=== PATIENT | female | born 1980 | race Caucasian/White ===

== ENCOUNTER 2019-12-08 11:00 | Observation (INO) ==
[2019-12-08] MEDS ORDERED: MORPHINE SULFATE INJ 2 MG INJ IVP PRN (11:38)
[2019-12-08] MEDS ORDERED: NS 1000 ML 1,000 ML ONE (12:07)
[2019-12-08 12:14] LABS: ALANINE AMINOTRANSFERASE 113 Units/L (12-78); ALBUMIN 4.5 g/dL (3.4-5.0); ALKALINE PHOSPHATASE 120 Units/L (46-116); ASPARTATE AMINO TRANSFERASE 60 Units/L (15-37); BLOOD UREA NITROGEN 12 mg/dL (7-18); CALCIUM 9.3 mg/dL (8.5-10.1); CARBON DIOXIDE 24.2 mmol/L (21-32); CHLORIDE 102 mmol/L (98-107); COR NA(FOR HYPERGLY) 136 mmol/L (136-145); CREATININE 0.82 mg/dL (0.55-1.02); MAGNESIUM 1.8 mg/dL (1.7-2.9); SODIUM 136 mmol/L (136-145); TOTAL PROTEIN 8.9 g/dL (6.4-8.2); eGFR NON BLACK RACES > 60 (>60)
[2019-12-08] MEDS: NS 1000 ML 1,000 ML IV SCH (12:14)
--- NOTE | 2019-12-08 12:15 | DR.H&P ---
H&P - History & Physical for Day of: H&P Date: 12/08/19 - Chief Complaint Chief Complaint: ABDOMINAL PAIN, DIARRHEA, DEHYDRATION, WEAKNESS - History of Present Illness History of Present Illness: PT IS 39 WF, PT OF [facility] [place] WHO HAD BEEN TREATED FOR DIARRHEA FOR SEVERAL WEEKS. PT HAD OUTPT STOOL STUDIES + WBC. PT HAS PMH OF MS FOLLOWED BY DR REED. PT HAS HAD OUTPT HYDRATION IV AND PO. PT ADMITTED FOR TREATMENT OF ACUTE DEHYDRATION, COLITIS. - Past Medical History Additional Medical History: MS - Social History Does patient currently use any type of tobacco product: No Have you used tobacco products in the last 12 months: No Type of Tobacco Use: None Alcohol Use: None Drug Use: None - Medications Home Medications: No Known Drug Allergies Allergy (Verified 12/08/19 12:04) - Review of Systems Constitutional: Weakness Eyes: No Symptoms Reported ENT: No Symptoms Reported Respiratory: No Symptoms Reported Cardiovascular: No Symptoms Reported Gastrointestinal: See HPI, Abdominal Pain, Diarrhea Musculoskeletal: No Symptoms Reported Skin: No Symptoms Reported Neurological: Weakness Oriented: Normal Eyes: Normal Ear: Normal Nose: Normal Throat: Normal Respiratory: Clear Throughout Cardiovascular: Normal : Normal Auscultation: Bowel Sounds: Increased Tenderness: Diffuse Skin: Decreased Turgur Musculoskeletal: Back:Thoracic, Back:Lumbar Psychiatric: Normal Speech Pattern: Clear, Appropriate - Assessment/Plan (1) Abdominal pain Status: Acute Plan: ADMIT NPO ON ADMISSION UNTIL CT SCAN ABD PELVIS THEN CLEAR LIQUIDS. ADMISSION LABS CBC CMP MAG, UA. STOOL STUDIES, CRP, SED RATE. IV HYDRATION, PAIN AND NAUSEA CONTROL. VERIFY HOME MEDICATION, IV CIPRO IF NO HOME MEDICATION CONTRAINDICATION (2) Colitis Status: Acute (3) Multiple sclerosis Status: Acute (4) Dehydration Status: Acute (5) Hypokalemia Status: Acute - Allergies Allergies/Adverse Reactions: Allergies Allergy/AdvReac Type Severity Reaction Status Date / Time No Known Drug Allergies Allergy Verified 12/08/19 12:04
[2019-12-08 12:31] LABS: EOSINOPHILS # (AUTO) 0.1 x10^3/uL (0.0-0.2); EOSINOPHILS % (AUTO) 1.5 % (0.9-2.9); LYMPHOCYTES # (AUTO) 0.7 X10^3/uL (1.3-2.9); MONOCYTES # (AUTO) 0.7 x10^3/uL (0.3-0.8)
[2019-12-08 12:39] LABS: ERYTHROCYTE SEDIMENTATION RATE 11 MM/HOUR (0-20)
[2019-12-08 12:45] LABS: BASOPHILS % (AUTO) 0.3 % (0.2-1.0); HEMATOCRIT 43.5 % (36.0-47.0); HEMOGLOBIN 15.5 g/dL (12.0-16.0); LYMPHOCYTES % (AUTO) 11.7 % (21.0-51.0); MEAN CORPUSCULAR HEMOGLOBIN 32.1 pg (27.0-34.0); MEAN CORPUSCULAR HGB CONC 35.7 g/dL (33.0-35.0); MEAN CORPUSCULAR VOLUME 89.9 fL (80.0-100.0); MEAN PLATELET VOLUME 10.3 fL (7.4-11.0); MONOCYTES % (AUTO) 12.2 % (0.0-13.0); NEUTROPHILS # (AUTO) 4.5 x10^3/uL (2.2-4.8); NEUTROPHILS % (AUTO) 74.3 % (42.0-75.0); PLATELET COUNT 278 X10^3/uL (150.0-450.0); RED BLOOD COUNT 4.84 X10^6/uL (3.5-5.4)
[2019-12-08 12:58] LABS: BAND NEUTROPHILS % 9 % (0-10)
[2019-12-08 12:59] LABS: PLATELET MORPHOLOGY COMMENT NORMAL (NORMAL)
[2019-12-08] MEDS: PROTONIX INJ 40 MG VIAL IVP SCH (13:31)
[2019-12-08 14:10] LABS: BILIRUBIN,URINE NEGATIVE (NEGATIVE); BLOOD/HEMOGLOBIN,URINE 1+ (NEGATIVE); GLUCOSE, URINE NEGATIVE (NEGATIVE); KETONES,URINE NEGATIVE (NEGATIVE); LEUKOCYTE ESTERASE ,URINE NEGATIVE (NEGATIVE); NITRITES,URINE NEGATIVE (NEGATIVE); PROTEIN,URINE 2+ (NEGATIVE); UROBILINOGEN,URINE NORMAL (NORMAL)
[2019-12-08 14:20] VITALS: BMI 20.9
[2019-12-08 14:32] LABS: APPEARANCE,URINE SLIGHTLY HAZY (CLEAR); BACTERIA,URINE TRACE /HPF (NEGATIVE); COLOR,URINE YELLOW (YELLOW); RBC,URINE 0-2 /HPF (0-3); SQUAMOUS EPITHELIAL CELL,UR MODERATE /HPF (NEGATIVE)
[2019-12-08 14:33] LABS: MUCUS,URINE FEW /HPF (NEGATIVE)
[2019-12-08 14:51] LABS: CRYPTOSPORIDIUM PARVUM ANTIGEN NEGATIVE (NEGATIVE); GIARDIA LAMBLIA ANTIGEN NEGATIVE (NEGATIVE)
--- NOTE | 2019-12-08 15:53 | CT ---
HISTORYCOLITIS, INTRACTABLE ABD PAIN, DIARRHEASTUDYCT ABDOMEN/PELVIS WITH IV CONCOMPARISONNoneTECHNIQUEMultiple axial images of the abdomen and pelvis were obtained from the lung bases to the pubic symphysis following the administration of IV contrast. 100 cc Omni 350 IV. Dose reduction techniques including Automated Exposure Control (AEC) and adjustment of mA and kV were utilized.FINDINGSThe visualized portions of the lung bases reveal a 3 millimeter ground-glass nodule in the right lower lobe on image 10 of series 4.The liver and spleen display no abnormalities.Gallbladder appears normal. No biliary ductal dilation.No pancreatic abnormality is seen.The adrenal glands appear normal.No hydronephrosis or renal abnormality is seen. Ureters and bladder appear normal.Stomach is not well distended. Possible mild small bowel wall thickening and consideration should be given to gastroenteritis. Appendix is not seen but no pericecal inflammation is seen. No evidence of colitis or diverticulitis.There is likely partially collapsed 2.7 cm left ovarian cyst.Abdominal aorta is normal in size.Shotty reactive mesenteric lymph nodes.No free intraperitoneal air or fluid is seen.No acute bony abnormality is seen.IMPRESSIONNo evidence of colitis but there may be gastroenteritis changes.Likely partially collapsed 2.7 cm left ovarian cyst.Electronically signed by: Omi Langford (Dec 08, 2019 15:51:30)
[2019-12-08] MEDS ORDERED: NORCO 5/325 MG TAB PO PRN (16:22)
[2019-12-08] MEDS ORDERED: KLOR-CON PO PRN (16:24)
[2019-12-08] MEDS ORDERED: MICRO K EXTEN CAP 10 MEQ PO PRN (16:24)
[2019-12-08] MEDS ORDERED: POTASSIUM CHLORIDE LIQ 20 MEQ UDC PO PRN (16:24)
[2019-12-08] MEDS ORDERED: K-RIDER 10 MEQ/NS 100 ML 10 MEQ/100 ML BAG IV PRN (16:24)
[2019-12-08] MEDS ORDERED: POTASSIUM CHL 40 MEQ/NS 0.45% 500 ML IV PRN (16:24)
[2019-12-08] MEDS ORDERED: POTASSIUM CHL 60 MEQ/NS 0.45% 500 ML IV PRN (16:24)
[2019-12-08] MEDS: K-DUR TAB 20 MEQ PO PRN (18:01)
[2019-12-08] MEDS: IMODIUM CAP 2 MG PO PRN (18:01)
[2019-12-08] MEDS: MAGNESIUM SULFATE 1 GRAM/100 mL PREMIX 1 GM/100 ML BAG IV PRN ×2 (21:39→22:40)
[2019-12-09] MEDS: K-DUR TAB 20 MEQ PO PRN (01:33)
[2019-12-09] MEDS: NS 1000 ML 1,000 ML IV SCH (01:34)
[2019-12-09] MEDS: MAGNESIUM SULFATE 1 GRAM/100 mL PREMIX 1 GM/100 ML BAG IV PRN (01:34)
[2019-12-09 06:39] LABS: ALANINE AMINOTRANSFERASE 79 Units/L (12-78); ALBUMIN 3.5 g/dL (3.4-5.0); ALKALINE PHOSPHATASE 93 Units/L (46-116); ASPARTATE AMINO TRANSFERASE 38 Units/L (15-37); BLOOD UREA NITROGEN 5 mg/dL (7-18); CALCIUM 7.4 mg/dL (8.5-10.1); CARBON DIOXIDE 20.4 mmol/L (21-32); CHLORIDE 106 mmol/L (98-107); CREATININE 0.56 mg/dL (0.55-1.02); SODIUM 137 mmol/L (136-145); eGFR NON BLACK RACES > 60 (>60)
[2019-12-09 06:43] LABS: BASOPHILS % (AUTO) 0.2 % (0.2-1.0); EOSINOPHILS # (AUTO) 0.2 x10^3/uL (0.0-0.2); HEMATOCRIT 38.2 % (36.0-47.0); LYMPHOCYTES # (AUTO) 0.3 X10^3/uL (1.3-2.9); LYMPHOCYTES % (AUTO) 5.5 % (21.0-51.0); MEAN CORPUSCULAR HGB CONC 36.6 g/dL (33.0-35.0); MEAN CORPUSCULAR VOLUME 87.4 fL (80.0-100.0); MEAN PLATELET VOLUME 9.8 fL (7.4-11.0); MONOCYTES # (AUTO) 0.6 x10^3/uL (0.3-0.8); MONOCYTES % (AUTO) 10.8 % (0.0-13.0); NEUTROPHILS # (AUTO) 4.3 x10^3/uL (2.2-4.8); NEUTROPHILS % (AUTO) 80.5 % (42.0-75.0); PLATELET COUNT 223 X10^3/uL (150.0-450.0); RED BLOOD COUNT 4.38 X10^6/uL (3.5-5.4); RED CELL DISTRIBUTION WIDTH 13.1 % (11.6-16.5); WHITE BLOOD COUNT 5.3 X10^3/uL (3.6-10.0)
[2019-12-09] MEDS: PROTONIX INJ 40 MG VIAL IVP SCH (09:05)
[2019-12-09] MEDS: IMODIUM CAP 2 MG PO PRN (09:05)
[2019-12-09] MEDS ORDERED: QUESTRAN POWDER FOR ORAL SUSP PO SCH (11:15)
[2019-12-09] MEDS ORDERED: FLAGYL IV PREMIX 500 MG BAG 500 MG/100 ML BAG IV SCH (12:00)
--- NOTE | 2019-12-09 13:51 | RAD ---
HISTORYLung noduleSTUDYChest PA and lateral viewsCOMPARISONCT abdomen 12/08/2019, chest images unavailableFINDINGSNormal heart size with clear lungs and pleural spaces. There is no evidence for infiltrate, nodule or hilar asymmetry. A thoracic dextroscoliosis is present.IMPRESSIONNo abnormality identified. The 3.[address] mm [address]ule described on CT is not identified.Electronically signed by: RIK VAZQUEZ (Dec 09, 2019 13:49:31)
[2019-12-09 14:24] VITALS: BP 125/56
[2019-12-09] MEDS ORDERED: PROTONIX INJ 40 MG VIAL IVP SCH (21:00)
== END 2019-12-09 14:30 | disposition home or self-care (01) ==
LOC: MED/SURG
PROVIDERS: ADMIT Internal Medicine; ATTEND Internal Medicine
DX: R53.1 Weakness; K52.89 Other specified noninfective gastroenteritis and colitis; R10.84 Generalized abdominal pain; G35 Multiple sclerosis; E86.0 Dehydration; E87.6 Hypokalemia; R79.82 Elevated C-reactive protein (CRP); R19.7 Diarrhea, unspecified; Z79.899 Other long term (current) drug therapy; I10 Essential (primary) hypertension
CPT/HCPCS: 36415; 71020; 71046; 74177; 80053; 81001; 82270; 83630; 83735; 84132; 85025; 85652; 86140; 87045; 87086; 87328; 87329; 87338; 87427; 87449; 87493; 87899; 96360; 96361; A4222; C9113; G0378; J3475; J7030; S0030